=== PATIENT | male | born 1960 | race Caucasian/White ===

== ENCOUNTER 2024-04-20 07:45 | Day surgery (SDC) | payer MEDICARE ==
[~2024-04-20 07:45] MED LIST: HYDROCHLOROT25 MG PO; NORVASC10 M1 PO
[2024-04-20] MEDS ORDERED: FAMOTIDINE 10MG/ML 2ML SDV IV ONE (07:51)
[2024-04-20] MEDS ORDERED: LACTATED RINGER'S 1,000 ML IV ONE (07:52)
[2024-04-20] MEDS ORDERED: IBUPROFEN600 MG PO (08:08)
[2024-04-20] MEDS ORDERED: OMEPRAZOLE20 MG PO (10:12)
[2024-04-20 10:48] VITALS: BP 135/82
[2024-04-20] MEDS ORDERED: LIDOCAINE HCL 2% 2ML SDV IV ONE (13:17)
[2024-04-20] MEDS ORDERED: PROPOFOL 200 MG/20 ML VIAL IV ONE (13:17)
== END 2024-04-20 11:28 | disposition home or self-care (01) ==
LOC: ORM 07:45
PROVIDERS: ATTEND Surgery
PROC: 0DBK8ZX Excision of Ascending Colon, Via Natural or Artificial Opening Endoscopic, Diagnostic (ICD-10-PCS; principal; 2024-04-20)
PROC: 0DBL8ZX Excision of Transverse Colon, Via Natural or Artificial Opening Endoscopic, Diagnostic (ICD-10-PCS; 2024-04-20)
PROC: 0DBN8ZX Excision of Sigmoid Colon, Via Natural or Artificial Opening Endoscopic, Diagnostic (ICD-10-PCS; 2024-04-20)
PROC: 0DBM8ZX Excision of Descending Colon, Via Natural or Artificial Opening Endoscopic, Diagnostic (ICD-10-PCS; 2024-04-20)
PROC: 0DB68ZX Excision of Stomach, Via Natural or Artificial Opening Endoscopic, Diagnostic (ICD-10-PCS; 2024-04-20)
DX: K29.70 Gastritis, unspecified, without bleeding (principal); K25.9 Gastric ulcer, unspecified as acute or chronic, without hemorrhage or perforation; K29.80 Duodenitis without bleeding; K44.9 Diaphragmatic hernia without obstruction or gangrene; K31.89 Other diseases of stomach and duodenum; Z12.11 Encounter for screening for malignant neoplasm of colon; K57.30 Diverticulosis of large intestine without perforation or abscess without bleeding; D12.2 Benign neoplasm of ascending colon; D12.4 Benign neoplasm of descending colon; K63.5 Polyp of colon; K64.8 Other hemorrhoids; I10 Essential (primary) hypertension; F17.200 Nicotine dependence, unspecified, uncomplicated; Z80.0 Family history of malignant neoplasm of digestive organs; Z86.0100 Personal history of colon polyps, unspecified